=== PATIENT | male | born 1945 | race Caucasian/White ===

== ENCOUNTER → 2019-06-14 08:59 | Outpatient (CLI) | payer OTHER ==
[2016-05-20 11:31] VITALS: BMI 27.5
[~2019-06-14 08:59] MED LIST: COMBIVENT RESPIM4 GM INH; COZAAR100 MG PO; FLOMAX0.4 MG PO; HYZAAR 100-25 T1 TAB PO; IPRAT-ALBUT 0.5-3 ML UPD; NEXIUM40 MG PO; PROSCAR5 MG PO; SPIRIVA18 MCG INH; SYMBICORT 16010.2 GM INH
[2019-06-14 09:43] LABS: ALBUMIN 4.1 g/dL (3.4-5.0); ALKALINE PHOSPHATASE 109 U/L (46-116); ALT (SGPT) 35 U/L (10-68); BILIRUBIN - TOTAL 0.19 mg/dL (0.2-1.3); CALC OSMOLALITY 289 mosm/kg (275-300); CALCIUM 9.4 mg/dL (8.5-10.1); CARBON DIOXIDE 31.8 mmol/L (21.0-32.0); CHLORIDE - SERUM 105 mmol/L (98-107); CREATININE - SERUM 0.7 mg/dL (0.6-1.3); GLUCOSE 113 mg/dL (74-106); POTASSIUM - SERUM 3.7 mmol/L (3.5-5.1); PROTEIN - SERUM 7.1 g/dL (6.4-8.2); SODIUM 143 mmol/L (136-145); UREA NITROGEN 23 mg/dL (7-18); eGFR NON AFRICAN AMERICAN > 90 mL/min (90-120)
[2019-06-14 09:58] LABS: APPEARANCE CLEAR (CLEAR); BILIRUBIN NEGATIVE (NEGATIVE); COLOR YELLOW (YELLOW); GLUCOSE 50 mg/dL (NEGATIVE); KETONE NEGATIVE (NEGATIVE); NITRITE NEGATIVE (NEGATIVE); PROTEIN NEGATIVE (NEGATIVE); SPECIFIC GRAVITY 1.015 (1.005-1.020); UROBILINOGEN NORMAL (NORMAL)
== END | disposition home or self-care (01) ==
LOC: D.LAB 08:59
PROVIDERS: ATTEND Orthopaedic Surgery
DX: E11.9 Type 2 diabetes mellitus without complications (principal)

== ENCOUNTER 2019-10-25 05:37 | Outpatient (CLI) | payer MEDICARE, OTHER ==
[~2019-10-25] VITALS: Ht 167.6 cm; Wt 61.2 kg
--- NOTE | ~2019-10-25 | HEMODYNAMI ---
PATIENT:BASIL LEO MEDICAL RECORD: [id number] : 45 LOCATION:[facility] ADMISSION DATE: 10/25/19 Generatedon:10/25/201910:18 Patient name: BASIL LEO Patient #: [id number] SSN: : 1945 Date of study: 10/25/2019 Page: Of Hemodynamic Procedure Report Patient Data Patient Demographics Procedure consent was obtained First Name: BASIL Gender: Male Last Name: FELIPA : 1945 [facility] Initial: TIMBO Age: 74 year(s) Patient #: [id number] Race: Unknown Additional ID: [id number] Contact details Address: [address] [place] [address] [address] State: [place] City: [facility] Zip code: [address] Past Medical History Allergies: No known allergies Admission Admission Data Admission Date: 10/25/2019 Admission Time: 5:37 Height (in.): 66 BSA: 1.69 (m2) Height (cm.): 167.64 BMI: 21.63 (kg/m2) Weight (lbs.): 134 Weight (kg.): 60.78 Procedure Procedure Types Cath Procedure Peripheral Cath Diagnostic Procedure Director Of Social Services Peripheral Procedures Abd/Extremity Extremities Bilat Lower Extremity Procedure Description Procedure Date Procedure Date: 10/25/2019 Procedure Start Time: 8:48 Procedure Staff Name Function Carrington Syed MD Performing Physician Linda Recinos RT L Tacker Jolanta España RN Nurse Armando Verdin RT Scrub Procedure Data Cath Procedure Fluoroscopy Diagnostic fluoroscopy Total fluoroscopy Time: time: 18.2 min 18.2 min Diagnostic fluoroscopy Total fluoroscopy dose: 401 dose: 401 mGy mGy Contrast Material Contrast Material Type Amount (ml) Isovue 300 155 Entry Location Entry Primary Successful Side Size Upsize Upsize Entry Closure Succes sful Closure Location (Fr) 1 (Fr) 2 (Fr) Remarks Device Remarks Femoral Exoseal artery Procedure Medications Medication Administration Route Dosage Heparin Flush Bag added to field 2 bags (1000units/500ml NS) Lidocaine 1% added to field 20 Versed I.V. 1 mg Fentanyl I.V. 50 mcg Heparin Bolus I.V. 5000 units Versed I.V. 1 mg Fentanyl I.V. 50 mcg Hemodynamics Rest BSA: 1.69 (m2) O2 Consumption: Estimated: 189.49 (ml/min) O2 Consumption indexed : Estimated:112.12 (ml/min/m) Heart Rate: 62 (bpm) Snapshots Pre Cath Intra NCS Post Cath Vital Signs Time Heart Resp SPO2 etCO2 NIBP (mmHg) Rhythm Pain Sedation Rate (ipm) (%) (mmHg) Status Level (bpm) 8:28:28 60 13 100 33 128/73(108) NSR 0 (11) 10(A) , No pain 8:32:40 60 16 100 30.8 124/72(108) NSR 0 (11) 10(A) , No pain 8:36:52 66 14 100 30 124/70(107) NSR 0 (11) 10(A) , No pain 8:40:59 60 18 100 28.5 118/72(99) NSR 0 (11) 10(A) , No pain 8:45:59 65 15 100 27.7 Measuring NSR 0 (11) 10(A) , No pain 8:46:03 65 15 100 27.7 111/69(88) NSR 0 (11) 10(A) , No pain 8:50:45 61 16 100 31.5 121/71(104) NSR 0 (11) 10(A) , No pain 8:54:59 54 14 100 13.5 108/62(93) NSR 0 (11) 8(A) , No pain 8:59:05 63 14 97 12.7 105/67(90) NSR 0 (11) 8(A) , No pain 9:03:09 60 14 99 18.7 102/70(86) NSR 0 (11) 8(A) , No pain 9:07:15 70 13 98 12 107/61(83) NSR 0 (11) 8(A) , No pain 9:11:22 60 13 98 32.2 102/60(72) NSR 0 (11) 8(A) , No pain 9:15:28 62 11 99 30.7 103/58(86) NSR 0 (11) 8(A) , No pain 9:19:34 63 13 99 10.5 104/60(88) NSR 0 (11) 8(A) , No pain 9:23:42 63 12 99 19.5 99/58(83) NSR 0 (11) 8(A) , No pain 9:27:48 60 13 98 26.2 100/61(86) NSR 0 (11) 8(A) , No pain 9:31:53 63 13 98 31.5 104/60(79) NSR 0 (11) 8(A) , No pain 9:35:59 59 14 99 24.7 100/61(84) NSR 0 (11) 8(A) , No pain 9:40:05 59 14 99 19.5 102/61(85) NSR 0 (11) 8(A) , No pain 9:44:08 59 14 98 30 105/65(90) NSR 0 (11) 8(A) , No pain 9:48:14 60 14 98 14.2 101/62(89) NSR 0 (11) 8(A) , No pain 9:52:20 55 15 98 15.7 103/58(73) NSR 0 (11) 8(A) , No pain 9:56:26 63 20 99 32.2 105/58(72) NSR 0 (11) 8(A) , No pain 10:00:34 60 15 97 0 105/57(73) NSR 0 (11) 10(A) , No pain 10:04:44 63 14 95 0 102/51(81) NSR 0 (11) 10(A) , No pain 10:08:51 63 14 96 0 106/54(75) NSR 0 (11) 10(A) , No pain 10:12:59 60 14 97 0 103/58(85) NSR 0 (11) 10(A) , No pain 10:17:05 59 15 99 31.5 111/60(88) NSR 0 (11) 10(A) , No pain Medications Time Medication Route Dose Verified Delivered Reason Notes Effec tiveness by by 8:26:13 Heparin Flush added 2 Carrington Carrington used for Bag to bags Yahaira Syed MD procedure (1000units/500ml field WANG NS) 8:26:28 Lidocaine 1% added 20ml Carrington Shultz for local to vial Yahaira Syed MD anesthetic field 8:50:52 Versed I.V. 1 mg Carrington Stover for Taco Syed RN sedation 8:51:15 Fentanyl I.V. 50 Carrington Jolanta for mcg Taco Syed RN sedation 9:28:52 Heparin Bolus I.V. 5000 Carrington Stover Per units Taco Syed RN physician MD 9:58:15 Versed I.V. 1 mg Carrington Stover for Taco Syed RN sedation 9:58:23 Fentanyl I.V. 50 Carrington Stover for mcg Taco Syed RN sedation Procedure Log Time Note 8:09:37 Patient Height : 66 inches 8:09:44 Patient Weight : 134 lbs 8:09:48 Use device set IR Diagnostic 8:11:13 SHEATH 5FR Teachey (EXG966) opened to sterile field. 8:11:14 TUBING Contrast Injection High Pressure ([id number]) opened to sterile field. 8:11:15 Micropuncture VSI 4FR kit opened to sterile field. 8:11:16 DIALLO 260 wire (B90925) opened to sterile field. 8:11:17 DOC .035 wire (K44277) opened to sterile field. 8:11:18 Tegaderm 4 x 4 (1626W) opened to sterile field. 8:11:20 Sterile Angiographic Pack opened to sterile field. 8:11:21 Bag Decanter (2002S) opened to sterile field. 8:11:22 ACIST Manifold (14956) opened to sterile field. 8:11:23 ACIST Hand Control (51679) opened to sterile field. 8:11:24 ACIST Syringe (17015) opened to sterile field. 8:11:33 - 8:13:41 Time tracking: Regular hours (M-F 7:00 - 5:00) 8:17:26 Plan of Care:Hemodynamics will remain stable., Cardiac rhythm will remain stable., Comfort level will be maintained., Respiratory function will remain adequate., Patient/ family verbilizes understanding of procedure., Procedure tolerated without complication., Recovers from procedure without complications.. 8:17:33 Patient received from Outpatients to IR Alert and oriented. Tansferred to table in Supine position. 8:17:36 Signed procedure consent form obtained from patient. 8:17:52 H&P Date Dictated: 10/25/2019 Within 30 days and on chart., H&P Addendum completed by physician on day of procedure. (MUST COMPLETE FOR ALL OUTPATIENTS). 8:17:54 Pre-procedure instructions explained to patient. 8:17:55 Pre-op teaching completed and patient verbalized understanding. 8:18:01 Family unavailable. 8:18:03 Patient NPO since Midnight. 8:18:16 Patient allergic to No known allergies 8:18:20 Is the patient allergic to Iodine/contrast media? No. 8:18:24 Is patient on blood thinner?No 8:18:28 Patient diabetic? Yes. 8:18:30 If diabetic: On Metformin? No 8:18:38 - 8:18:40 ----Pre-sedation anethsthesia assessment.---- 8:18:44 Previous problem with sedation/anesthesia? No ? 8:18:46 Snore? No 8:18:48 Sleep apnea? No 8:18:51 Deviated septum? No 8:18:53 Opens mouth fully? Yes 8:18:55 Sticks out tongue? Yes 8:19:01 Airway obstruction? Yes COPD 8:19:12 Dentures? Yes TAKEN OUT 8:26:13 Heparin Flush Bag (1000units/500ml NS) 2 bags added to field was administered by Carrington Syed MD; used for procedure; Verbal order read back and verified. 8:26:28 Lidocaine 1% 20ml vial added to field was administered by Carrington Syed MD; for local anesthetic; Verbal order read back and verified. 8:27:02 Pre procedure: right dorsailis pedis pulse Doppler 8::05 Pre procedure: left dorsailis pedis pulse Doppler 8::09 Pre procedure: right posterior tibial pulse Doppler 8::14 Pre procedure: left posterior tibial pulse Doppler 8::18 - 8::21 ECG and BP/O2 sat monitors applied to patient. 8::24 Vital chart was started 8::26 Baseline sample Acquired. 8::29 Full Disclosure recording started 8::31 - 8:28:01 Left groin area was prepped with chlora-prep and draped in sterile fashion 8:28:10 Fire Safety Assessment: A--An alcohol-based skin anteseptic being used preoperatively., C--Open oxygen or nitrous oxide is being used. 8:28:31 2) 60-89 Mildly reduced kidney function, and other findings (as for stage 1) point to kidney disease. 8:28:36 - 8:29:58 Maximum allowable contrast dose (3.7 X eGFR X 0.75)244 ml. 8:47:57 Physician arrived 8:47:58 --------ALL STOP TIME OUT------ 8:47:59 Final Timeout: patient, procedure, and site verified with staff and physician. All members of the team are in agreement. 8:48:26 Procedure started. 8:48:31 Local anesthetic to left femerol artery with Lidocaine 1% by Carrington Syed MD.INITIAL ACCESS ONLY 8:48:34 Arterial access obtained using ultrasound guidance. 8:48:53 Angiodynamics Omniflush 5Fr 65cm ([id number]) opened to sterile field. 8:48:55 GLIDE CATHETER 5FR ANGLED 65cm (CG507) opened to sterile field. 8:50:52 Versed 1 mg I.V. was administered by Jolanta España RN; for sedation; Verbal order read back and verified. 8:51:15 Fentanyl 50 mcg I.V. was administered by Jolanta España RN; for sedation ; Verbal order read back and verified. 9:08:16 GLIDE WIRE ANGLE 180cm (KO1958) opened to sterile field. 9:09:52 TORQUE DEVICE PLASTIC .038 ( TD01) opened to sterile field. 9:19:58 ROADRUNNER .035 260 glide wire (L54968) opened to sterile field. 9:20:00 CXI SUPPORT .035 135 CM STR catheter (P79853) opened to sterile field. 9:20:00 COOK SHEATH 6FR RAABE 70CM (Q75723) opened to sterile field. 9:28:52 Heparin Bolus 5000 units I.V. was administered by Jolanta España RN; Per physician; Verbal order read back and verified. 9:33:00 SPIDER EMBOLIC PROTECTION DEVICE 5MM ([id number]) opened to sterile field. 9:33:19 INFLATOR BasixTOUCH (NI2045) opened to sterile field. 9:33:28 CHOICE PT Extra Support J 300cm guide wire ([id number]) opened to steril e field. 9:33:51 Inflate balloon Inflation number: 1 A Evercross 3 x 4 x 135 Balloon ([id number]) was prepped and advanced across the Undefined1 , then inflated . 9:35:08 GLIDE WIRE ANGLE 260cm (HF5544) opened to sterile field. 9:42:42 Hawkone Medium Atherectomy System (H1-M) opened to sterile field. 9:58:15 Versed 1 mg I.V. was administered by Jolanta Taco RN; for sedation; Verbal order read back and verified. 9:58:23 Fentanyl 50 mcg I.V. was administered by Jolanta España RN; for sedation ; Verbal order read back and verified. 9:59:19 Inflate balloon Inflation number: 2 A IN.PACT Admiral 5 x 150 x 130 DCB balloon ([id number]) was prepped and advanced across the Undefined1 , then inflated. 10:00:07 SHEATH 6FR Teachey (NOG925) opened to sterile field. 10:09:32 Diallo 180 wire (J67974) opened to sterile field. 10:13:45 EXOSEAL 6Fr (EX600) opened to sterile field. 10:13:49 A sheath was inserted into the Femoral artery 10:13:49 Sheath removed intact; hemostasis achieved with Exoseal to the Femoral artery. 10:14:24 Procedure ended.(Physican Out) 10:16:00 Fluoroscopy time 18.20 minutes. 10:16:05 Fluoroscopy dose: 401 mGy 10:16:05 Flurop Dose total: 401 10:16:13 Contrast amount:Isovue 300 155ml. 10:16:17 Procedure and supply charges have been captured, reviewed, submitted an d are correct. 10:18:21 Post Procedure Pulses reassessed and unchanged 10:18:27 Report given to Outpatients. 10:18:54 Vital chart was stopped Intervention Summary Intervention Notes Time ActionType Lesion and Equipment Used Action# Pressure Duration Attributes 9:33:51 Inflate Undefined1 Evercross 3 x 4 1 0 00:00 balloon x 135 Balloon ([id number]) 9:59:19 Inflate Undefined1 IN.PACT Admiral 2 0 00:00 balloon 5 x 150 x 130 DCB balloon ([id number]) Device Usage Item Name Manufacture Quantity Catalog Number [facility] Part [facility] nt Minimal Lot# / Charge Number Stock Stock Serial# Code SHEATH 5FR Terumo 1 CNU537 269017 507455 78940 1 5 Teachey (ZIR978) TUBING Contrast Merit Medical 1 [id number] 127437 192409 16991 0 5 Injection High Pressure ([id number]) Micropuncture VSI VASCULAR 1 7266V 465346 76742 3 5 VSI 4FR kit SOLUTIONS DIALLO 260 wire Cook Medical 1 W47458 666767 61946 68751 8 5 (M29878) DOC .035 wire Cook Medical 1 M96370 300704 91316 8 5 (A12785) Tegaderm 4 x 4 3M 1 1626W 443867 321436 93041 6 5 (1626W) Sterile Cardinal 1 [id number] 434001 53377 1 5 Angiographic Health Pack Bag Decanter Microtek 1 2001S 788340 25463 90415 3 5 (2001S) Medical Inc. ACIST Manifold Acist Medical 1 33115 826642 031138 80189 4 5 (62891) Systems Inc ACIST Hand Acist Medical 1 48220 750096 871949 21587 8 5 Control (74946) Systems Inc ACIST Syringe Acist Medical 1 44278 420544 410344 56559 7 20 (68930) Systems Inc Angiodynamics Angiodynamics 1 37323771 994079 142896 27842 9 5 Omniflush 5Fr 65cm (84493108) GLIDE CATHETER Terumo 1 CG507 377576 85199 5 5 5FR ANGLED 65cm (CG507) GLIDE WIRE Terumo 1 JP2460 773771 731561 17499 5 5 ANGLE 180cm (BA7931) TORQUE DEVICE Kempner 1 TD01 171032 685950 95759 4 5 PLASTIC .038 ( Scientific TD01) ROADRUNNER .035 [employer] 1 V99108 499913 818700 19418 2 5 [id number] 260 glide wire (Y47678) CXI SUPPORT [facility] 1 O09648 666441 803196 92898 9 5 [id number] .035 135 CM STR catheter (H40220) COOK SHEATH 6FR [employer] 1 F16147 655878 71077 62950 7 1 [id number] RAABE 70CM (K54033) SPIDER EMBOLIC Medtronic 1 ZIS9-IY-651-320 069061 80590 7 5 PROTECTION DEVICE 5MM ([id number]) INFLATOR [facility] 1 EB3135 591395 993327 63317 1 5 [id number] BasixTOUCH (NG2931) CHOICE PT Extra Kempner 1 [id number] 071898 322264 86769 3 5 Support J 300cm Scientific guide wire (0093014O0) Evercross 3 x 4 Medtronic 1 [id number] 962589 801336 95899 0 5 x 135 Balloon ([id number]) GLIDE WIRE Terumo 1 BD0581 834898 560511 39493 0 5 ANGLE 260cm (KC0482) Hawkone Medium Medtronic 1 H1-M 804759 45157 957 5 Atherectomy System (H1-M) IN.PACT Admiral Medtronic 1 [id number] 352315 1150101 78339 6 5 5 x 150 x 130 DCB balloon ([id number]) SHEATH 6FR Terumo 1 IFR488 537129 938339 41156 4 40 Teachey (TTK696) Diallo 180 wire [employer] 1 I80382 957096 510357 40737 52 5 [id number] (Q86795) EXOSEAL 6Fr Cardinal 1 EX600 033108 422327 96455 2 10 [id number] (EX600) Health Signature Audit [place] Stage Time Signature Unsigned Intra-Procedure 10/25/2019 Linda Recinos 10:18:49 AM RT(R) [facility] [address] [place] [address]
[2019-10-25 06:06] LABS: APTT 28.2 SECONDS (22.8-39.4); INR 0.96 (0.85-1.17); PROTIME 12.7 SECONDS (11.6-15.0)
[2019-10-25 06:15] LABS: CALC OSMOLALITY 276 mosm/kg (275-300); CALCIUM 8.9 mg/dL (8.5-10.1); CARBON DIOXIDE 29.9 mmol/L (21.0-32.0); CHLORIDE - SERUM 101 mmol/L (98-107); CREATININE - SERUM 0.9 mg/dL (0.6-1.3); GLUCOSE 115 mg/dL (74-106); SODIUM 138 mmol/L (136-145); UREA NITROGEN 12 mg/dL (7-18); eGFR NON AFRICAN AMERICAN 88 mL/min (90-120)
[2019-10-25 07:00] LABS: BASOPHILS 0.2 % (0-2); EOSINOPHILS 1.7 % (0-7); HEMATOCRIT 46.2 % (42.0-54.0); HEMOGLOBIN 15.4 g/dL (13.5-17.5); IMMATURE GRANULOCYTES 0.3 % (0-5); LYMPHOCYTES 30.2 % (15-50); MCH 33.7 pg (26.0-34.0); MCHC 33.3 g/dL (31.0-37.0); MCV 101.1 fL (80.0-100.0); MEAN PLATELET VOLUME 9.8 fL (7.4-10.4); MONOCYTES 11.3 % (2-11); NEUTROPHILS 56.3 % (40-80); RBC 4.57 10x6/uL (4.20-6.10); RDW 12.5 % (11.5-14.5); WBC 5.9 10x3/uL (4.8-10.8)
[2019-10-25 07:15] LABS: PLATELET COUNT 226 10x3/uL (130-400)
[2019-10-25 07:22] VITALS: Ht 167.6 cm; Wt 61.2 kg
--- NOTE | 2019-10-25 12:41 | NUR ---
1040 PT ARRIVED TO 2515 VIA STRETCHER FROM RADIOLOGY. PT DROWSY BUT AROUSES EASILY TO VERBAL STIMULI. PT REMINDED TO KEEP LEFT LEG STRAIGHT AND STILL. PT VERBALIZES UNDERSTANDING OF INSTRUCTIONS. VITAL SIGNS ARE BEING RECORDED ORDERED ON POST PROCEDURE SHEET AND IS A PART OF THE PAPER MEDICAL RECORD.
--- NOTE | 2019-10-25 14:22 | NUR ---
1345 DR CARR HERE TO EVALUATE PT PRIOR TO DISCHARGE AND GO OVER RESULTS OF PROCEDURE. DR CARR LOCATED DORSALIS PEDIS AND POSTERIOR TIBIAL PULSES WITH DOPPLER BILATERALLY. PT INSTRUCTED PER DR CARR NOT TO TAKE PLEDAL AND TO BEGIN PLAVIX TOMORROW. PT VOICES UNDERSTANDING OF INSTRUCTIONS AND IT IS WRITTEN ON DISCHARGE PAPERS. 1355 IV DC'D. CATHETER TIP INTACT. PRESSURE HELD UNTIL BLEEDING STOPPED. BANDAID APPLIED.
== END 2019-10-25 14:17 | disposition home or self-care (01) ==
LOC: D.SP 05:37 → D.RAD 05:37 → D.SP 08:00 → D.RAD 13:00 → D.SP 14:17
PROVIDERS: ATTEND General Practice
DX: I70.201 Unspecified atherosclerosis of native arteries of extremities, right leg (principal)

== ENCOUNTER 2019-11-04 05:52 | Outpatient (CLI) | payer MEDICARE, OTHER ==
[~2019-11-04] VITALS: Ht 167.6 cm; Wt 60.9 kg
--- NOTE | ~2019-11-04 | HEMODYNAMI ---
PATIENT:BASIL LEO MEDICAL RECORD: [id number] : 45 LOCATION:[facility] ADMISSION DATE: 11/04/19 Generatedon:11/04/201910:29 Patient name: BASIL LEO Patient #: [id number] SSN: : 1945 Date of study: 11/04/2019 Page: Of Hemodynamic Procedure Report Patient Data Patient Demographics Procedure consent was obtained First Name: BASIL Gender: Male Last Name: FELIPA : 1945 [facility] Initial: TIMBO Age: 74 year(s) Patient #: [id number] Race: Unknown Additional ID: [id number] Contact details Address: [address] [place] [address] [address] State: [place] City: [facility] Zip code: [address] Past Medical History Allergies: No known allergies Admission Admission Data Admission Date: 11/04/2019 Admission Time: 5:52 Procedure Procedure Types Cath Procedure Peripheral Cath Diagnostic Procedure Abd/Extremity Extremities Bilat Lower Extremity Procedure Description Procedure Date Procedure Date: 11/04/2019 Procedure Start Time: 8:34 Procedure End Time: 10:28 Procedure Staff Name Function Carrington Syed MD Performing Physician RADHA PÉREZ RT Monitor Armando Verdin RT Scrub Lo Aguilar RN Nurse Procedure Data Cath Procedure Fluoroscopy Diagnostic fluoroscopy Total fluoroscopy Time: time: 25.9 min 25.9 min Contrast Material Contrast Material Type Amount (ml) Isovue 300 185 Entry Location Entry Primary Successful Side Size Upsize Upsize Entry Closure Succ essful Closure Location (Fr) 1 (Fr) 2 (Fr) Remarks Device Remarks Femoral Right 5 Fr 6 Fr 6 Fr Angio-VIP artery Long Short 6Fr Procedure Medications Medication Administration Route Dosage Heparin Flush Bag added to field 3 bags (1000units/500ml NS) Lidocaine 1% added to field 20 Versed I.V. 1 mg Fentanyl I.V. 50 mcg Heparin Bolus I.V. 5000 units Heparin Bolus I.V. 2000 units Fentanyl I.V. 25 mcg Nitroglycerin IC/IA I.A. 300 mcg Nitroglycerin IC/IA I.A. 300 mcg Hemodynamics Rest Heart Rate: 68 (bpm) Snapshots Pre Cath Intra NCS Post Cath Vital Signs Time Heart Resp SPO2 etCO2 NIBP (mmHg) Rhythm Pain Sedation Rate (ipm) (%) (mmHg) Status Level (bpm) 8:19:31 66 16 100 32.8 135/77(115) NSR 0 (11) 10(A) , No pain 8:24:31 70 17 100 29.1 Measuring NSR 0 (11) 10(A) , No pain 8:24:45 59 17 100 23.8 136/76(113) NSR 0 (11) 10(A) , No pain 8:28:59 62 16 100 16.4 140/78(102) NSR 0 (11) 10(A) , No pain 8:33:15 69 16 100 31.3 138/77(120) NSR 0 (11) 8(A) , No pain 8:37:31 62 15 100 25.3 127/74(100) NSR 0 (11) 8(A) , No pain 8:41:43 56 15 100 34.3 134/75(113) NSR 0 (11) 8(A) , No pain 8:45:57 61 13 100 34.3 130/72(108) NSR 0 (11) 8(A) , No pain 8:50:13 62 13 100 30.6 123/64(104) NSR 0 (11) 8(A) , No pain 8:54:25 66 13 100 136/70(101) NSR 0 (11) 8(A) , No pain 8:58:45 66 10 100 17.1 112/59(92) NSR 0 (11) 8(A) , No pain 9:02:55 60 10 100 14.9 127/63(108) NSR 0 (11) 8(A) , No pain 9:07:11 58 10 100 13.4 113/63(95) NSR 0 (11) 8(A) , No pain 9:11:21 65 10 100 10.4 121/63(94) NSR 0 (11) 8(A) , No pain 9:15:32 63 10 100 10.4 122/63(87) NSR 0 (11) 8(A) , No pain 9:19:44 62 11 100 19.4 127/66(89) NSR 0 (11) 8(A) , No pain 9:23:59 59 10 100 16.4 125/57(86) NSR 0 (11) 8(A) , No pain 9:28:06 60 10 100 16.4 118/62(107) NSR 0 (11) 8(A) , No pain 9:32:16 62 11 100 14.9 134/70(101) NSR 0 (11) 8(A) , No pain 9:37:09 54 11 100 23.9 121/71(88) NSR 0 (11) 8(A) , No pain 9:41:21 61 12 100 26.1 135/67(109) NSR 0 (11) 8(A) , No pain 9:45:31 62 12 100 0 122/72(102) NSR 0 (11) 8(A) , No pain 9:49:41 63 11 100 21.7 140/69(111) NSR 0 (11) 8(A) , No pain 9:53:53 71 12 1.4 127/77(105) NSR 0 (11) 8(A) , No pain 9:58:02 71 12 99 15.7 126/78(105) NSR 0 (11) 8(A) , No pain 10:02:14 67 12 100 0 126/75(99) NSR 0 (11) 8(A) , No pain 10:06:20 63 13 98 11.9 132/77(106) NSR 0 (11) 8(A) , No pain 10:10:32 67 13 100 0 142/75(104) NSR 0 (11) 8(A) , No pain 10:14:48 66 14 98 11.2 122/76(113) NSR 0 (11) 8(A) , No pain 10:18:54 68 14 100 27.7 130/81(105) NSR 0 (11) 8(A) , No pain 10:23:08 55 14 100 2.9 144/72(110) NSR 0 (11) 8(A) , No pain 10:27:26 57 10 100 29.9 140/71(103) NSR 0 (11) 8(A) , No pain Medications Time Medication Route Dose Verified Delivered Reason Notes Effectiveness by by 8:22:58 Heparin Flush added 3 Carrington Shultz used for Bag to bags Yahaira Syed MD procedure (1000units/500ml field WANG NS) 8:23:14 Lidocaine 1% added 20ml Carrington Shultz used for to vial Yahaira Syed MD procedure field WANG 8:32:41 Versed I.V. 1 mg Carrington Blanchard for sedation Jeff Syed RN, MD 8:32:53 Fentanyl I.V. 50 Carrington Blanchard for sedation mcg Jeff Syed RN, MD 8:50:47 Fentanyl I.V. 25 Carrington Blanchard for sedation mcg Jeff Syed RN, MD 8:54:03 Heparin Bolus I.V. 5000 Carrington Petersi for units Jeff Syed RN anticoagulation 9:48:46 Heparin Bolus I.V. 2000 Carrington Blanchard for units Jeff Syed RN anticoagulation 9:51:38 Nitroglycerin I.A. 300 Carrington Blanchard used for IC/IA mcg Jeff Syed RN, MD 10:11:08 Nitroglycerin I.A. 300 Carrington Lo used for IC/IA mcg Jeff Syed RN, MD Procedure Log Time Note 7:53:44 Armando Verdin RT (R) (CV) sent for patient. Start room use. 7:53:46 Time tracking: Regular hours (M-F 7:00 - 5:00) 7:53:50 Plan of Care:Hemodynamics will remain stable., Cardiac rhythm will remain stable., Comfort level will be maintained., Respiratory function will remain adequate., Patient/ family verbilizes understanding of procedure., Procedure tolerated without complication., Recovers from procedure without complications.. 7:53:58 Patient received from Outpatients to IR Alert and oriented. Tansferred to table in Supine position. 7:54:00 Signed procedure consent form obtained from patient. 7:54:02 Warm blankets applied, and rafa hugger turned on for patient comfort. 7:54:03 Correct patient and procedure confirmed by team. 7:54:04 ECG and BP/O2 sat monitors applied to patient. 7:54:05 - 7:54:11 H&P Date Dictated: 11/04/2019 H&P Addendum completed by physician on day of procedure. (MUST COMPLETE FOR ALL OUTPATIENTS). 7:54:16 Pre-procedure instructions explained to patient. 7:54:16 Pre-op teaching completed and patient verbalized understanding. 7:54:19 Patient NPO since Midnight. 7:54:31 Patient allergic to No known allergies 7:54:35 Is the patient allergic to Iodine/contrast media? No. 7:55:04 Is patient on blood thinner? Yes. Plavix and Aspirin 7:55:09 Patient diabetic? No. 7:55:14 - 7:55:30 ----Pre-sedation anethsthesia assessment.---- 7:55:34 Previous problem with sedation/anesthesia? No ? 7:55:37 Snore? No 7:55:39 Sleep apnea? No 7:55:41 Deviated septum? No 7:55:44 Opens mouth fully? Yes 7:55:46 Sticks out tongue? Yes 7:55:50 Airway obstruction? No ? 7:55:55 Dentures? Yes in tight. 7:55:58 - 8:00:48 Pre procedure: right dorsailis pedis pulse Doppler 8:00:51 Pre procedure: left dorsailis pedis pulse Doppler 8:00:54 Pre procedure: right posterior tibial pulse Doppler 8:00:57 Pre procedure: left posterior tibial pulse Doppler 8:02:00 IV patent on arrival in right hand with 0.9% NaCl at KVO. 8:02:12 Right groin area was prepped with chlora-prep and draped in sterile fashion 8:02:14 Alarms reviewed by Yasmeen Read 8:02:17 Sharps counted by scrub and verified by Inge 8:02:18 - 8:02:23 Use device set IR Diagnostic 8:02:24 ACIST Syringe (76312) opened to sterile field. 8:02:24 ACIST Hand Control (15845) opened to sterile field. 8:02:25 ACIST Manifold (45936) opened to sterile field. 8:02:25 Bag Decanter (2002) opened to sterile field. 8:02:26 Sterile Angiographic Pack opened to sterile field. 8:02:27 Tegaderm 4 x 4 (1626W) opened to sterile field. 8:04:07 DOC .035 wire (N96736) opened to sterile field. 8:04:08 DIALLO 260 wire (F58103) opened to sterile field. 8:04:08 SHEATH 5FR [place] (RTM503) opened to sterile field. 8:04:09 MICROPUNCTURE 4FR Cook (Z86793) opened to sterile field. 8:04:09 SHEATH 6FR Destination (RSR01) opened to sterile field. 8:04:10 Angiodynamics Omniflush 5Fr 65cm ([id number]) opened to sterile field. 8:04:15 - 8:18:16 Baseline sample Acquired. 8:18:16 Vital chart was started 8:18:19 Full Disclosure recording started 8:21:41 1) 90+ Normal kidney functon but urine findings or structural abnormalities or genetic trait point to kidney disease. 8:21:45 Physician paged 8:22:58 Heparin Flush Bag (1000units/500ml NS) 3 bags added to field was administered by Carrington Syed MD; used for procedure; Verbal order read back and verified. 8:23:14 Lidocaine 1% 20ml vial added to field was administered by Carrington Syed MD; used for procedure; Verbal order read back and verified. 8:30:59 Physician arrived 8:31:09 --------ALL STOP TIME OUT------ 8:31:10 Final Timeout: patient, procedure, and site verified with staff and physician. All members of the team are in agreement. 8:32:03 Right groin site verified by team. 8:32:06 Fire Safety Assessment: A--An alcohol-based skin anteseptic being used preoperatively., C--Open oxygen or nitrous oxide is being used. 8:32:33 Maximum allowable contrast dose (3.7 X eGFR X 0.75)249.75 ml. 8:32:41 Versed 1 mg I.V. was administered by Lo Aguilar RN; for sedation; Verbal order read back and verified. 8:32:52 Sedation plan: IV Moderate Sedation Medication:Versed, Fentanyl, Lidocaine 8:32:53 Fentanyl 50 mcg I.V. was administered by Lo Aguilar RN; for sedation; Verbal order read back and verified. 8:34:27 Procedure started. 8:34:44 Local anesthetic to right femoral artery with Lidocaine 1% by Carrington Syed MD.INITIAL ACCESS ONLY 8:35:09 AMPLATZ Super Stiff 75cm wire ([id number]) opened to sterile field. 8:35:27 Access obtained with 4Fr micropunture. 8:37:18 A 5 Fr sheath was inserted into the Right Femoral artery 8:41:26 GLIDE WIRE .038 180cm ANGLED (HZ1988) opened to sterile field. 8:41:27 GLIDE CATHETER 5FR ANGLED 100cm (CG508) opened to sterile field. 8:42:19 TORQUE DEVICE PLASTIC .038 ( TD01) opened to sterile field. 8:44:18 Sheath upsized to a 6 Fr Long. 8:50:47 Fentanyl 25 mcg I.V. was administered by Lo Aguilar RN; for sedation; Verbal order read back and verified. 8:51:03 SPIDER EMBOLIC PROTECTION DEVICE 5MM ([id number]) opened to sterile field. 8:51:04 CHOICE PT Extra Support J 300cm guide wire ([id number]) opened to steril e field. 8:51:19 COOK SHEATH 6FR RAABE 70CM (U88325) opened to sterile field. 8:53:45 CXI SUPPORT .035 135 CM STR catheter (L26547) opened to sterile field. 8:54:03 Heparin Bolus 5000 units I.V. was administered by Lo Aguilar RN; for anticoagulation; Verbal order read back and verified. 8:54:14 GLIDE WIRE ANGLE 260cm (GZ6914) opened to sterile field. 9:05:05 Inflate balloon Inflation number: 1 A CHOCOLATE 2.5 x 40 x 150 balloon ([id number]) was prepped and advanced across the Undefined1 , then inflated . 9:05:30 INFLATOR BasixTOUCH (CB6930) opened to sterile field. 9:13:49 Inflate balloon Inflation number: 1 A NANOCROSS ELITE 2.5MM-2 MM X 210 X 150 ([id number]) was prepped and advanced across the Undefined2 , then inflated . 9:15:19 Hawkone Medium Atherectomy System (H1-M) opened to sterile field. 9:40:21 Inflate balloon Inflation number: 1 A INPACT ADMIRAL 5 X 200 ([id number]) was prepped and advanced across the Undefined3 , then inflated . 9:48:46 Heparin Bolus 2000 units I.V. was administered by Lo Aguilar RN; for anticoagulation; Verbal order read back and verified. 9:51:38 Nitroglycerin IC/IA 300 mcg I.A. was administered by Lo Aguilar RN; used for procedure; Verbal order read back and verified. 9:53:15 Inflate balloon Inflation number: 1 A CHOCOLATE 3.0 x 40 x 150 balloon ([id number]) was prepped and advanced across the Undefined4 , then inflated . 9:54:45 SHEATH 6FR [place] (NDL190) opened to sterile field. 10:06:08 Inflate balloon Inflation number: 2 A NANOCROSS ELITE 3.0-2.5X210 ([id number]) was prepped and advanced across the Undefined4 , then inflated . 10:11:08 Nitroglycerin IC/IA 300 mcg I.A. was administered by Lo Aguilar RN; used for procedure; Verbal order read back and verified. 10:18:36 Sheath upsized to a 6 Fr Short. 10:18:36 Sheath removed intact; hemostasis achieved with Angio-VIP 6Fr to the Right Femoral artery. 10:24:49 Procedure ended.(Physican Out) 10:26:14 Fluoroscopy time 25.90 minutes. 10:26:17 Dose Area Product 252 mGy/cm. 10:26:21 Contrast amount:Isovue 300 185ml. 10:26:23 Insertion/operative site no bleeding no hematoma. 10:26:28 Post-op/insertion site Right Femoral artery dressed using a 4 x 4 and Tegaderm. 10:26:45 Post Procedure Pulses reassessed and unchanged 10:26:47 Post procedure instruction explained to patient.Patient verbalizes understanding. 10:26:48 Procedure and supply charges have been captured, reviewed, submitted an d are correct. 10:28:23 Vital chart was stopped 10:28:27 See physician's report for complete and final results. 10:28:31 Report given to Outpatients. 10:28:34 Patient transfered to Outpatients with Stretcher. 10:28:37 Procedure ended. 10:28:37 Full Disclosure recording stopped 10:28:42 End room use (Document Last) Intervention Summary Intervention Notes Time ActionType Lesion and Equipment Used Action# Pressure Duration Attributes 9:05:05 Inflate Undefined1 CHOCOLATE 2.5 x 1 0 00:00 balloon 40 x 150 balloon ([id number]) 9:13:49 Inflate Undefined2 NANOCROSS ELITE 1 0 00:00 balloon 2.5MM-2 MM X 210 X 150 ([id number]) 9:40:21 Inflate Undefined3 INPACT ADMIRAL 5 1 0 00:00 balloon X 200 ([id number]) 9:53:15 Inflate Undefined4 CHOCOLATE 3.0 x 1 0 00:00 balloon 40 x 150 balloon ([id number]) 10:06:08 Inflate Undefined4 NANOCROSS ELITE 2 0 00:00 balloon 3.0-2.5X210 ([id number]) Device Usage Item Name Manufacture Quantity Catalog Number [facility] Part Cur rent Minimal Lot# / Charge Number Stock Stock Serial# Code ACIST Syringe Acist Medical 1 18047 705617 292803 986 093 20 (08079) Systems Inc ACIST Hand Acist Medical 1 88360 542844 246054 986 524 5 Control (65419) Systems Inc ACIST Manifold Acist Medical 1 46546 043409 005418 986 540 5 (30284) Systems Inc Bag Decanter Microtek 1 2001S 274668 29120 984 470 5 (2001S) Medical Inc. Sterile Cardinal 1 [id number] 738694 997 875 5 Angiographic Pack Health Tegaderm 4 x 4 3M 1 1626W 933222 088435 990 168 5 (1626W) DOC .035 wire Cook Medical 1 B42620 591516 999 374 5 (R52834) DIALLO 260 wire Cook Medical 1 I59770 026850 71099 999 442 5 (R20553) SHEATH 5FR Terumo 1 DUD186 856452 445211 993 982 5 [place] (UAO799) MICROPUNCTURE 4FR Cook Talkwheel 1 Y52317 918082 306594 999 692 5 [place] (G24011) SHEATH 6FR Terumo 1 RSR01 073209 86497 999 514 5 Destination (RSR01) Angiodynamics Angiodynamics 1 [id number] 183416 317424 999 897 5 Omniflush 5Fr 65cm (39358301) AMPLATZ Super Johnson 1 [id number] 020285 694549 999 838 5 Stiff 75cm wire Scientific ([id number]) GLIDE WIRE .035 Terumo 1 HA3128 537458 999 975 5 180CM STRAIGHT (FQ6904) GLIDE WIRE .038 Terumo 1 HI3124 958812 999 963 5 180cm ANGLED (VK2227) GLIDE CATHETER Terumo 1 CG508 985717 26572 999 857 4 5FR ANGLED 100cm (CG508) TORQUE DEVICE Johnson 1 TD01 803438 994425 999 208 5 PLASTIC .038 ( Scientific TD01) SPIDER EMBOLIC Medtronic 1 HOL1-LW-650-320 905839 999 965 5 PROTECTION DEVICE 5MM ([id number]) CHOICE PT Extra Johnson 1 [id number] 783868 568476 998 815 5 Support J 300cm Scientific guide wire (1545636P3) COOK SHEATH 6FR Cook Medical 1 J75101 841442 88984 999 985 1 [id number] RAABE 70CM (E38616) CXI SUPPORT .035 Cook Medical 1 F01676 619491 060749 999 775 5 135 CM STR catheter (M96531) GLIDE WIRE ANGLE Terumo 1 SF5228 806023 287765 999 394 5 260cm (EP9511) CHOCOLATE 2.5 x Medtronic 1 [id number] O 342728 995178 999 994 5 40 x 150 balloon TW ([id number]) INFLATOR [facility] 1 JD3649 987707 795921 999 632 5 BasixTOUCH (BI4695) NANOCROSS ELITE Medtronic 1 [id number] 470567 999 992 1 2.5MM-2 MM X 210 X 150 ([id number]) Hawkone Medium Medtronic 1 H1-M 881297 999 66033 5 Atherectomy System (H1-M) INPACT ADMIRAL 5 Medtronic 1 [id number] 586958 8091262 999 996 1 X 200 ([id number]) CHOCOLATE 3.0 x Medtronic 1 [id number] O 131640 937413 999 991 5 40 x 150 balloon TW ([id number]) SHEATH 6FR Terumo 1 DWZ266 290767 185415 994 845 40 [place] (WDA319) NANOCROSS ELITE Medtronic 1 [id number] 895633 999 998 1 3.0-2.5X210 ([id number]) Signature Audit [place] Stage Time Signature Unsigned Intra-Procedure 11/04/2019 RADHA PÉREZ RT 10:28:58 AM (R) [id number] [place] [address]
[2019-11-04 06:23] LABS: APTT 27.9 SECONDS (22.8-39.4); INR 0.96 (0.85-1.17); PROTIME 12.8 SECONDS (11.6-15.0)
[2019-11-04] MEDS ORDERED: CELEBREX400 MG PO (06:26)
[2019-11-04] MEDS ORDERED: PROZAC10 MG PO (06:26)
[2019-11-04] MEDS ORDERED: OMEPRAZOLE40 MG PO (06:26)
[2019-11-04] MEDS ORDERED: STERAPRED 5MG 125 MG PO (06:27)
[2019-11-04 06:30] LABS: CALC OSMOLALITY 276 mosm/kg (275-300); CALCIUM 9.3 mg/dL (8.5-10.1); CHLORIDE - SERUM 99 mmol/L (98-107); CREATININE - SERUM 0.7 mg/dL (0.6-1.3); GLUCOSE 121 mg/dL (74-106); POTASSIUM - SERUM 4.1 mmol/L (3.5-5.1); SODIUM 138 mmol/L (136-145); UREA NITROGEN 13 mg/dL (7-18); eGFR NON AFRICAN AMERICAN > 90 mL/min (90-120)
[2019-11-04] MEDS ORDERED: BAYER CHEWABLE81 MG PO (06:37)
[2019-11-04] MEDS ORDERED: COMBIVENT RESPIM4 GM INH (06:40)
[2019-11-04 06:45] LABS: BASOPHILS 0.4 % (0-2); EOSINOPHILS 2.8 % (0-7); HEMATOCRIT 46.9 % (42.0-54.0); HEMOGLOBIN 15.4 g/dL (13.5-17.5); IMMATURE GRANULOCYTES 0.2 % (0-5); LYMPHOCYTES 33.4 % (15-50); MCH 33.1 pg (26.0-34.0); MCHC 32.8 g/dL (31.0-37.0); MCV 100.9 fL (80.0-100.0); MEAN PLATELET VOLUME 9.6 fL (7.4-10.4); MONOCYTES 9.7 % (2-11); NEUTROPHILS 53.5 % (40-80); PLATELET COUNT 220 10x3/uL (130-400); RBC 4.65 10x6/uL (4.20-6.10); RDW 12.6 % (11.5-14.5); WBC 5.5 10x3/uL (4.8-10.8)
[2019-11-04 06:48] VITALS: BP 102/57; Ht 167.6 cm; Wt 60.9 kg
--- NOTE | 2019-11-04 13:26 | NUR ---
DC INSTRUCTIONS GIVEN TO PT. STATES UNDERSTANDING. DC'D IV CATH FULLY INTACT. R GROIN SITE IS SOFT AND CDI.
--- NOTE | 2019-11-04 13:39 | NUR ---
PT LEFT UNIT VIA WC AT 1333
== END 2019-11-04 13:33 | disposition home or self-care (01) ==
LOC: D.SP 05:52 → D.RAD 08:00 → D.SP 13:33
PROVIDERS: ATTEND General Practice
DX: I70.219 Atherosclerosis of native arteries of extremities with intermittent claudication, unspecified extremity (principal); I10 Essential (primary) hypertension; K21.9 Gastro-esophageal reflux disease without esophagitis; Z72.0 Tobacco use